=== PATIENT | male | born 1950 | race African-American/Black ===

== ENCOUNTER 2018-09-18 15:11 | Emergency (ER) | payer OTHER ==
[~2018-09-18] VITALS: Ht 175.3 cm; Wt 97.5 kg
[2018-09-18] MEDS ORDERED: AMARYL2 MG PO (15:41)
[2018-09-18] MEDS ORDERED: METFORMIN HCL500 MG PO (15:41)
[2018-09-18] MEDS ORDERED: VITAMIN D1000 UNI1 PO (15:42)
[2018-09-18] MEDS ORDERED: ZOCOR20 MG PO (15:42)
[2018-09-18] MEDS ORDERED: HYDROCHLOROTH12.5 M1 PO (15:42)
[2018-09-18] MEDS ORDERED: LISINOPRIL20 MG PO (15:42)
[2018-09-18 17:39] VITALS: BP 132/78
== END 2018-09-18 17:42 | disposition home or self-care (01) ==
LOC: ER 15:11
DX: E11.649 Type 2 diabetes mellitus with hypoglycemia without coma (principal); I10 Essential (primary) hypertension; E78.00 Pure hypercholesterolemia, unspecified

== ENCOUNTER 2019-11-07 09:35 | Inpatient (IN) | payer OTHER ==
[~2019-11-07] VITALS: Ht 175.3 cm; Wt 97.5 kg
[~2019-11-07 09:35] MED LIST: AMARYL2 MG PO; HYDROCHLOROTHIA50 MG PO; LISINOPRIL40 MG PO; METFORMIN HCL500 MG PO; SIMVASTATIN40 MG PO; VITAMIN D1000 UNI1 PO
[2019-11-07 09:37] VITALS: BP 160/103
[2019-11-07 10:26] LABS: HEMOGLOBIN 13.6 gm/dL (14.0-18.0); MCV 82.6 fL (80.0-100.0)
[2019-11-07 10:28] LABS: ABSOLUTE NEUTROPHILS 5.7 thou/uL (1.4-8.2); BASOPHILS 0.5 % (0.0-2.0); EOSINOPHILS 0.1 % (0.0-3.0); HEMATOCRIT 42.5 % (42.0-52.0); MCH 26.4 pg (26.0-34.0); MONOCYTES 6.6 % (1.0-8.0); POLYS 79.8 % (36.0-66.0); RBC 5.15 mil/uL (4.50-6.00); RDW 13.7 % (10.5-14.5); WBC 7.2 thou/uL (4.0-11.0)
[2019-11-07 10:37] LABS: ANION GAP 9 mmol/L (7-16); BUN 33 mg/dL (7-18); CALCIUM 9.4 mg/dL (8.5-10.1); CHLORIDE 93 mmol/L (98-107); CO2 31 mmol/L (21-32); CREATININE 1.9 mg/dL (0.7-1.3); GLUCOSE 191 mg/dL (74-106); SODIUM 133 mmol/L (136-145)
[2019-11-07 10:49] LABS: ALBUMIN 3.6 g/dL (3.4-5.0); MAGNESIUM 1.7 mg/dL (1.8-2.4); SGOT 15 U/L (15-37); SGPT 21 U/L (30-65); TOTAL BILIRUBIN 0.5 mg/dL (<0.1-1.0); TOTAL PROTEIN 7.7 g/dL (6.4-8.2); TROPONIN-I <0.06 ng/mL (<0.06)
[2019-11-07 11:34] LABS: PLATELET COUNT 187 thou/uL (150-400)
[2019-11-07 12:06] LABS: URINE BILIRUBIN NEGATIVE (Negative); URINE BLOOD NEGATIVE (Negative); URINE CLARITY CLEAR; URINE COLOR YELLOW; URINE GLUCOSE-RANDOM* NEGATIVE (Negative); URINE KETONES NEGATIVE (Negative); URINE LEUKOCYTES-REFLEX NEGATIVE (Negative); URINE NITRITE-REFLEX NEGATIVE (Negative); URINE PROTEIN (DIPSTICK) 2+ (Negative); URINE SPECIFIC GRAVITY 1.015 (1.005-1.035); URINE UROBILINOGEN 0.2 E.U./dl (0.2-1.0)
[2019-11-07 12:13] LABS: CASTS None Seen /LPF (None Seen); SQUAMOUS 4-10 Moderate /LPF (0-3)
[2019-11-07 12:14] LABS: BACTERIA-REFLEX 1-9 Few /HPF (None Seen); CRYSTALS None Seen /LPF (None Seen); URINE RBC 0-2 Rare /HPF (0-2); URINE WBC-REFLEX 0-5 Rare /HPF (0-5)
[2019-11-07 14:04] VITALS: BP 187/85
[2019-11-07 15:04] VITALS: BP 197/93
[2019-11-07 15:10] LABS: ALBUMIN 3.8 g/dL (3.4-5.0); TOTAL PROTEIN 7.2 g/dL (6.4-8.2)
[2019-11-07 15:36] LABS: TSH 1.262 uIU/mL (0.358-3.740)
[2019-11-07 15:49] VITALS: BP 195/97
[2019-11-07 16:58] VITALS: BP 178/73
[2019-11-07 19:26] VITALS: BP 148/66
--- NOTE | 2019-11-07 20:11 | NUR ---
Pt admitted from ER, transferred to bed safely. A+Ox4. On room air. Vital signs stable. On carb controlled diet; no nausea, no vomiting and no abdominal pain noted. On blood sugar monitoring- taken and recorded accordingly. No complaints of pain noted. With relative at bedside. With R AC- SL- started IV of NS at 125cc/hr, infusing well. Falls bundle in place. Admission education, history and assessment done; Forms signed. Pt with elevated BP of 195/97- PRN hydralazine and PO amlodipine given as prescribed; rechecked: 178/73. Rechecked again: 181/75- Dr Schafer informed, One time dose of hydralazine IV and PO Amlodipine given as prescribed- informed rn shift mgr nurse to re-check pt's vital signs. To continue monitorign patient.
--- NOTE | 2019-11-08 01:50 | NUR ---
PATIENT CARE ASSUMED AT 1915 WITH PT IN BED WATCHING TV.PT HAD ELEVATED BP DURING THE PREVIOUS SHIFT AND WAS MANAGED WITH HYDRALAZINE.PT VOMITED ONCE AND WAS GIVEN PROCHLORPERAZINE 5MG IVP.PT APPEARED TO BE IN NO DESTRESS.PT USES URINAL AND PT IS UP WITH SBA X1.PT HAS NS AT 125ML/HR.WILL CONTINUE TO MONITOR PER POC
[2019-11-08 03:10] LABS: GLYCOHEMOGLOBIN (HGB A1C) 6.8 % (4.8-5.6)
[2019-11-08 05:02] VITALS: BP 179/74
[2019-11-08 06:13] LABS: HEMOGLOBIN 13.1 gm/dL (14.0-18.0); MCH 26.4 pg (26.0-34.0); MCHC 31.9 g/dL (28.0-37.0); MCV 82.9 fL (80.0-100.0); RBC 4.94 mil/uL (4.50-6.00); RDW 13.8 % (10.5-14.5); WBC 7.5 thou/uL (4.0-11.0)
[2019-11-08 06:54] LABS: CREATININE 1.8 mg/dL (0.7-1.3); MAGNESIUM 1.7 mg/dL (1.8-2.4); POTASSIUM 3.8 mmol/L (3.5-5.1)
[2019-11-08 07:56] VITALS: BP 152/63
[2019-11-08 12:25] LABS: LIPASE 704 U/L (73-393); TRIGLYCERIDE 111 mg/dL (<150)
--- NOTE | 2019-11-08 12:34 | EKG ---
[facility] [place] [address] [address] [address] ELECTROCARDIOGRAM REPORT Name: KIERA FAIRBANKS Room #: 458-P ADM IN M.R.#: [id number] Admission: 11/07/19 Attend Phys: Edinson Schafer MD Discharge: Date of : 46 Report #: [id number] THIS REPORT FOR: cc: Martha Wallace MD, Karla L. MD Lundgren,Andrew Uribe MD [facility] THIS REPORT FOR: //name// [facility] ED Test Date: 2019-11-07 Test Time: 09:39:40 Pat Name: KIERA FAIRBANKS Department: Room: 458 P Gender: M Digital Performance Analyst: SUSY : 1950 Requested By: Reene Melendez Order Number: [id number] MD: Andrew Sullivan Measurements Intervals [place] Rate: 61 P: 74 [place]: 146 QRS: 26 QRSD: 109 T: -24 QT: 427 QTc: 430 Interpretive Statements Sinus rhythm Ventricular premature complex Nonspecific ST segment abnormality No previous ECG available for comparison Electronically Signed On 11-07-2019 17:29:38 SPRAY GUN REPAIRER HELPER by Andrew Sullivan [email or web address] <ELECTRONICALLY SIGNED> By: Andrew Sullivan MD, FACC 11/07/19 1729 0939 0939 Andrew Sullivan MD, [facility] /EPI
--- NOTE | 2019-11-08 13:02 | NUR ---
PT ADMITTED RELATED TO [facility]. CM REVIEWED CAHRT AND SPOKE WITH CARE TEAM. CM MET WITH PT AT BEDSIDE THIS DAY. PT IS A&O X4. CM ROLE INTRODUCED. PT INDICATED HE LIVES IN A HOUSE WITH HIS SIG OTHER WHO IS CURRENTLY HOSPITALIZED HERE. PT HAS 2 STEPS TO ENTER AND 12 HE USES INSIDE. 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 PT INDICATED HE PLANS TO RETURN HOME ONCE MEDICALLY STABLE. CM TO FOLLOW INIDCATED WITH DC PLANNING.
[2019-11-08 14:01] VITALS: BP 176/75
--- NOTE | 2019-11-08 18:55 | NUR ---
Assumed patient care at 0715. Blood pressure was 176/75; he was given Hydralazine as ordered. Vital signs have been stable throughout the rest of the shift. Patient alert and oriented x's 4, on room air; he denies pain. Patient given nausea medication at 1210 with complete relief. Appetite is poor. Patient to be NPO after Nidnight. He is to have EGD in am. Education per this procedure given to patient and spouse; they expressed an understanding prior to signing paperwork. POC followed. On-coming nurse notified.
[2019-11-08 20:29] VITALS: BP 156/69
--- NOTE | 2019-11-09 03:48 | NUR ---
Pt. rested quietly during the night when checked on during frequent rounds. He offers no c/o pain or nausea. No emesis. Bed alarm is on.
[2019-11-09 06:07] LABS: HEMATOCRIT 39.1 % (42.0-52.0); HEMOGLOBIN 12.4 gm/dL (14.0-18.0); MCH 26.3 pg (26.0-34.0); MCHC 31.8 g/dL (28.0-37.0); MCV 82.5 fL (80.0-100.0); RBC 4.73 mil/uL (4.50-6.00); RDW 13.8 % (10.5-14.5); WBC 6.5 thou/uL (4.0-11.0)
[2019-11-09 06:38] LABS: CALCIUM 8.8 mg/dL (8.5-10.1); CREATININE 1.5 mg/dL (0.7-1.3); MAGNESIUM 1.9 mg/dL (1.8-2.4); POTASSIUM 3.6 mmol/L (3.5-5.1)
[2019-11-09 07:25] VITALS: BP 204/95
[2019-11-09 11:56] VITALS: BP 173/82
--- NOTE | 2019-11-09 17:59 | NUR ---
Assumed patient care at 0715 with Mitten Stitcher and Analog Design Engineer from [facility]. Patient was NPO since midnight for EGD. Mitten Stitcher and Instructor with patient until 0945, when this nurse was asked to report to patient's room for "hand-off", as patient was leaving for procedure. Pt's blood pressure was 205/90 at 0740. He was given Hydralazine 10mg per IV push. Staff taking patient to procedure stated "we will give him blood pressure medication if he needs it before the EGD." Patient returned back to unit just prior to noon. Blood pressure was taken with high results per Mitten Stitcher and Instructor. This was not reported to this nurse. Hydralazine 10mg IV push given at 1640. Blood pressure continues to run high. He is asymptomatic. Patient givenLisinopril 40mg at 1715. Blood pressure re-checked at 1820 with the following readin/75, P 84. Dr Schafer paged at this time.
[2019-11-09 18:26] VITALS: BP 179/75
[2019-11-09 21:47] VITALS: BP 187/74
[2019-11-09 23:00] VITALS: BP 162/90
--- NOTE | 2019-11-10 03:01 | NUR ---
Pt. rested quietly during the night when checked on during frequent rounds. He offers no c/o pain or nausea. Elevated bp this shift and prn hydralazine iv given (see emar) which was helpful, see vss. Bed alarm is on.
[2019-11-10 03:37] LABS: HEMATOCRIT 38.6 % (42.0-52.0); HEMOGLOBIN 12.3 gm/dL (14.0-18.0); MCH 26.4 pg (26.0-34.0); MCHC 31.8 g/dL (28.0-37.0); MCV 83.1 fL (80.0-100.0); RBC 4.65 mil/uL (4.50-6.00); RDW 13.9 % (10.5-14.5); WBC 7.7 thou/uL (4.0-11.0)
[2019-11-10 03:56] LABS: CALCIUM 8.8 mg/dL (8.5-10.1); CREATININE 1.5 mg/dL (0.7-1.3); MAGNESIUM 1.7 mg/dL (1.8-2.4); POTASSIUM 3.5 mmol/L (3.5-5.1)
[2019-11-10 07:00] VITALS: BP 187/70
--- NOTE | 2019-11-10 11:08 | PATH ---
[facility] [address] [place] [address] PATHOLOGY RPT PROCEDURE Name: KIERA FAIRBANKS Room #: 458-P ADM IN M.R.#: [id number] Admission: 11/07/19 Date of : 46 Discharge: Report #: [id number] Path Case #: [id number] Note [facility] Accession Number: [id number] TESTS RESULT FLAG UNITS REF RANGE LAB Clinician Provided Cytology Information No. of containers..01 Other (Miscellaneous) Source: ESOPHAGEAL BRUSHING DIAGNOSIS: 02 ESOPHAGEAL BRUSHING NEGATIVE FOR MALIGNANT CELLS. REACTIVE SQUAMOUS CELLS ARE PRESENT. CELLULAR DEGENERATION IS PRESENT. NO FUNGAL ORGANISMS ARE PRESENT. Signed out by: 02 Rodolfo Jackson MD, Pathologist NPI- [id number] Performed by: 01 Shira Kerr, Press Hand ([facility]) Gross description: 1 TP /CAMDNE 11/09/2019 1805 Local FLAG LEGEND: L-Low Normal,H-High Normal,LL-Alert Low,HH-Alert High <-Panic Low,>-Panic High,A-Abnormal,AA-Critical Abnormal Performed at: [address] [place] [address] David Patton MD, [address] [address] [address] Yung MD, Specimen Comment: A courtesy copy of this report has been sent to [phone] Specimen Comment: Report sent to Performed at: [address], [place], [place] [address] MD David Patton MD Phone: [phone]
--- NOTE | 2019-11-10 13:08 | PATH ---
[facility] [address] [address] PATHOLOGY RPT PROCEDURE Name: JAIR FAIRBANKS Room #: 458-P ADM IN M.R.#: [id number] Admission: 11/07/19 Date of : 46 Discharge: Report #: [id number] Path Case #: [id number] [facility] Accession Number: [id number] . 01 Material submitted: . PART A: duodenum - BIOPSY OF DUODENITIS PART B: stomach - BIOPSY OF GASTRITIS . 01 Clinical history: . Pre-op diagnosis: Nausea, vomiting Post-op diagnosis: Duodenitis, gastritis, possible fungal esophagitis . 02 Diagnosis: A. Duodenum, "biopsy of duodenitis": - Mild chronic nonspecific duodenitis with mild blunting of villous pattern (see comment). - There is no evidence of acute cryptitis, granulomas, adenomatous change or malignancy. . B. Gastric, "biopsy of gastritis": - Mild chronic reactive gastropathy. - There is no evidence of acute cryptitis, granulomas, adenomatous change or malignancy. - The immunoperoxidase stains for Helicobacter pylori is negative. . (SHA:mmlaya; 11/10/2019) [facility] 11/10/2019 1006 Local . 02 Comment: A. The findings are nonspecific, however, slight blunting of villous pattern is present and thus laboratory studies should be done to rule out early sprue. . ([facility]:mmlaya; 11/10/2019) . 02 Electronically signed: . Rodolfo Jackson MD, Pathologist NPI- [id number] . 01 Gross description: . A. The specimen is received in formalin, labeled "Jair Fairbanks, biopsy of duodenitis". Received is a segment of pale kincaid soft tissue measuring 0.5 cm in maximum dimensions. The specimen is submitted entirely in cassette A1. . B. The specimen is received in formalin, labeled "Jair Fairbanks, biopsy of gastritis". Received are three segments of [place] [address] PATHOLOGY RPT PROCEDURE Name: JAIR FAIRBANKS Room #: 458-P [facility] IN M.R.#: [id number] Admission: 11/07/19 Date of : 46 Discharge: Report #: [id number] Path Case #: [id number] measuring 0.4 cm each in maximum dimensions. The specimen is submitted entirely in cassette B1. (CAA; 11/09/2019) QAC/QAC 11/09/2019 [facility]9 Local . 02 Pathologist provided ICD-10: K29.80, K31.9 . 02 CPT . 231991, 758272, Y07184 Specimen Comment: A courtesy copy of this report has been sent to [phone] Specimen Comment: [phone], Specimen Comment: Report sent to , and Performed at: [address], [place] [id number] MD David Patton MD Phone: [phone] Performed at: [address] [id number] Yung MD Phone: [phone]
[2019-11-10 14:15] VITALS: BP 181/69
[2019-11-10 15:51] VITALS: BP 163/73
[2019-11-10] MEDS ORDERED: NORVASC10 MG PO (15:59)
[2019-11-10] MEDS ORDERED: PEPCID40 MG PO (16:11)
[2019-11-10 16:25] VITALS: BP 163/73
--- NOTE | 2019-11-10 16:32 | NUR ---
CARE TEAM INDICATED THAT LONG PT'S BP BECOMES BETTER CONTROLLED HE WILL LIKELY BE MEDICALLY STABLE TO DC HOME THIS DAY. PT IS ANTICPATED THAT PT WILL HAVE NO NEEDS UPON DC. CM AVAIABLE SHOULD ANY DC NEEDS ARISE.
--- NOTE | 2019-11-10 20:55 | NUR ---
Received awake on bed. On nothing per ore- pt informed and aware, for gastric emptying studies. On room air. Vital signs stable. On blood sugar monitoring-taken and recorded accordingly. A+Ox4. With elevated Bp noted- PRN hydralazine given as prescribed. Continent, able to use urinal or go to the bathroom with standby assist. With SL at R hand- intact and flushing well. Assisted in ADLs, falls bundle in place. Pt brought down to [place] for gastric emptying studies via wheelchair, pt to stay there for 4 hrs. Back to room safely; lunch offered to patient. Vital signs rechecked, still with elevated blood pressure- resumed all missed medications from this morning, then to recheck BP again. Able to sit out on chair. Visited by relative today. Pt seen by christopher ARNOLD to discharge from their standpoint, Dr Schafer informed; as per Dr Schafer, if BP is controlled or lowered this PM may discharge- relayed to physician Bp readings post PO BP medications. Discharge orders made by physician. Discharge instructions, follow up schedule, and prescriptions given and instructed to patient; no HH needs. IV discontinued. Pt fetched by her sister. Pt transported via wheelchair with his personal belongings.
--- NOTE | 2019-11-12 08:51 | P ---
[facility] [place] [address] PROCEDURE REPORT Name: KIERA FAIRBANKS Room #: 458-P [facility] IN M.R.#: [id number] Admission: 11/07/19 Attend Phys: Edinson Schafer MD Discharge: 11/10/19 Date of : 46 Report #: [id number] THIS REPORT FOR: cc: Martha Wallace MD,Danielle Ogden MD DO ~ CC: Edinson Wallace PROCEDURE PERFORMED: An esophagogastroduodenoscopy with biopsies and brushings. He is a patient of Dr. Schafer. INDICATION FOR PROCEDURE: This patient has presented with nausea and vomiting of undetermined etiology, some epigastric discomfort. He has a history of diabetes mellitus. It is thought that he may possibly have gastroparesis. EGD is being performed to evaluate for mucosal disease. Informed consent for this procedure was obtained prior to the administration of any medication. The risks of the procedure, which include bleeding, perforation, infection, complications of sedation and the possibility I could miss something have been explained to the patient and he has indicated his consent by signing. Propofol was slowly titrated before and during this procedure for patient comfort by the anesthesia service. DESCRIPTION OF PROCEDURE: With the patient in the left lateral decubitus position, the Olympus upper videoscope was introduced through the upper esophageal sphincter and advanced under direct visualization to the third portion of the duodenum. Findings are noted on withdrawal of the scope. The visualized portion of the 2nd and 3rd parts of the duodenum appeared normal. The duodenal sweep is mildly erythematous. The duodenal bulb contains patchy erythema. Biopsies were obtained x 2 from the duodenal bulb for histopathology. Pylorus mildly erythematous and edematous. Antrum, there is moderate erosive gastritis in the antrum of the stomach and biopsies were obtained x 2 from this area for histopathology. Body, cardia and fundus, erythema and edema are noted. Biopsies were obtained from the proximal body of the stomach for histopathology x 2. Good hemostasis was noted after all biopsies. Retroflex view reveals the presence of a hiatal hernia. The scope was withdrawn into the esophagus. The Z-line is appropriately located at the top of the gastric folds and appears normal. The patient did have some exudative material that was seen on introduction of the scope. It appears to be gone for the most part and I think it was just probably dried secretions, but there was one remaining dried secretion appearing area that I brushed for DIO prep. The more proximal esophageal mucosa was absolutely normal. The scope was withdrawn. The patient [address] [address] PROCEDURE REPORT Name: KIERA FAIRBANKS Room #: 458-P DIS IN M.R.#: [id number] Admission: 11/07/19 Attend Phys: Edinson Schafer MD Discharge: 11/10/19 Date of : 46 Report #: [id number] went to the recovery area in stable condition. He tolerated the procedure well. IMPRESSION: 1. Mild exudative esophagitis. 2. Hiatal hernia. 3. Diffuse gastritis with distal erosions. Biopsies obtained as above. 4. Edematous pylorus. 5. Edema and erythema of the duodenal bulb, biopsied x2. 6. Normal second and visualized third portion of the duodenum. RECOMMENDATIONS: To await the path report. There was good hemostasis after all biopsies and brushings. We will keep him on H2 receptor antagonist. Right now, he is on Pepcid 20 mg IV b.i.d. and that we can send him home on 20 mg p.o. b.i.d. We will start him on some clear liquids, await the biopsies and brushings and I would recommend that he have a gastric emptying study as I think he most likely has some diabetic gastroparesis. Thank you very much once again for allowing me to participate in his care. <ELECTRONICALLY SIGNED> By: Danielle Zapata DO 11/12/19 0851 1104 1123 Danielle Zapata DO /nt
== END 2019-11-10 17:21 | disposition home or self-care (01) | DRG 438 ==
LOC: ER 09:35 → 4W 13:32 → EROBS 13:32 → 4W 15:05 → ENTRNSPT 11-10 16:56 → 4W 11-10 17:21
PROVIDERS: Emergency Medicine Emergency Medical Services; Internal Medicine Gastroenterology; ADMIT Internal Medicine
PROC: 0DD58ZX Extraction of Esophagus, Via Natural or Artificial Opening Endoscopic, Diagnostic (ICD-10-PCS; principal; 2019-11-09)
PROC: 0DB98ZX Excision of Duodenum, Via Natural or Artificial Opening Endoscopic, Diagnostic (ICD-10-PCS; principal; 2019-11-09)
PROC: 0DB68ZX Excision of Stomach, Via Natural or Artificial Opening Endoscopic, Diagnostic (ICD-10-PCS; principal; 2019-11-09)
DX: K85.20 Alcohol induced acute pancreatitis without necrosis or infection (principal); N17.0 Acute kidney failure with tubular necrosis; E87.1 Hypo-osmolality and hyponatremia; A08.4 Viral intestinal infection, unspecified; K29.00 Acute gastritis without bleeding; E86.0 Dehydration; I10 Essential (primary) hypertension; E78.00 Pure hypercholesterolemia, unspecified; K20.9 Esophagitis, unspecified; K44.9 Diaphragmatic hernia without obstruction or gangrene; R60.9 Edema, unspecified; K31.89 Other diseases of stomach and duodenum; E78.5 Hyperlipidemia, unspecified; G47.00 Insomnia, unspecified; T50.2X5A Adverse effect of carbonic-anhydrase inhibitors, benzothiadiazides and other diuretics, initial encounter; K29.80 Duodenitis without bleeding; F10.20 Alcohol dependence, uncomplicated; E11.43 Type 2 diabetes mellitus with diabetic autonomic (poly)neuropathy; K31.84 Gastroparesis; K76.0 Fatty (change of) liver, not elsewhere classified; Y92.89 Other specified places as the place of occurrence of the external cause; Z79.84 Long term (current) use of oral hypoglycemic drugs; Z79.899 Other long term (current) drug therapy
CPT/HCPCS: 10040; 62110; 62900; 70005

== ENCOUNTER 2019-11-20 18:16 | Inpatient (IN) | payer OTHER ==
[~2019-11-20] VITALS: Ht 175.3 cm; Wt 92.6 kg
[2019-11-20 18:16] VITALS: BP 186/99
[~2019-11-20 18:16] MED LIST changes: +NORVASC10 MG PO; +PEPCID40 MG PO
[2019-11-20] MEDS ORDERED: REGLAN 5 MG TAB5 MG PO (18:19)
[2019-11-20] MEDS ORDERED: ROSUVASTATIN CA10 MG PO (18:20)
[2019-11-20 18:39] LABS: ABSOLUTE NEUTROPHILS 6.4 thou/uL (1.4-8.2); BASOPHILS 0.4 % (0.0-2.0); EOSINOPHILS 0.1 % (0.0-3.0); HEMATOCRIT 46.6 % (42.0-52.0); HEMOGLOBIN 14.7 gm/dL (14.0-18.0); LYMPHOCYTES 8.5 % (24.0-44.0); MCH 26.4 pg (26.0-34.0); MCHC 31.5 g/dL (28.0-37.0); MCV 83.6 fL (80.0-100.0); MONOCYTES 3.1 % (1.0-8.0); PLATELET COUNT 234 thou/uL (150-400); POLYS 87.9 % (36.0-66.0); RBC 5.57 mil/uL (4.50-6.00); RDW 14.1 % (10.5-14.5); WBC 7.3 thou/uL (4.0-11.0)
[2019-11-20 18:49] LABS: ALBUMIN 3.3 g/dL (3.4-5.0); CALCIUM 9.9 mg/dL (8.5-10.1); CREATININE 1.8 mg/dL (0.7-1.3); TOTAL BILIRUBIN 0.5 mg/dL (<0.1-1.0); TOTAL PROTEIN 7.4 g/dL (6.4-8.2)
[2019-11-20 18:53] LABS: POTASSIUM 6.5 mmol/L (3.5-5.1)
--- NOTE | 2019-11-20 20:27 | NUR ---
PATIENT BEING TRANSPORTED TO MRI. DIVISION CHAIR TO NOTIFY ER WHEN PATIENT IS READY FOR TRANSPORT
[2019-11-20 20:30] VITALS: BP 185/90
[2019-11-20 21:51] VITALS: BP 205/97
[2019-11-20 22:45] LABS: CHOLESTEROL 124 mg/dL (<200); HDL CHOLESTEROL 56 mg/dL (>40); LDL CHOLESTEROL 50 mg/dL (<100); TC:HDL 2.2 Ratio (Not establshd); TRIGLYCERIDE 92 mg/dL (<150); VLDL 18 mg/dL (<40)
[2019-11-20 22:48] LABS: SERUM ASSESSMENT Clear
--- NOTE | 2019-11-20 23:56 | NUR ---
PT ADMITTED FROM ED WITH RIGHT SIDED WEAKNESS.PT ARRIVED TO UNIT VIA CART.A/OX4.VSS.BLOOD PRESSURE ELEVATED.ON RA W/O RESP DISTRESS.ON MONITOR SR/SB.ORIENTED TO RM AND UNIT ACTIVITIES.POC REVIEWED AND IN AGREEMENT.NIH COMPLETED PER ORDERS SCORING 3.MRI RESULTS CALLED TO THE NEUROLOGIST BY THE ASP WEB DEVELOPER,YAZMIN CARRANZA.IVF PER ORDERS.ADMISSION ASSESSMENT COMPLETED.FAMILY AT THE BEDSIDE.MEDS RECONCILLED.PT DENIES PAIN OR ANY DISTRESS AT THIS TIME.WILL CONT TO MONITOR
[2019-11-21] VITALS (8 sets, daily range): BP systolic 94–187; BP diastolic 55–90
--- NOTE | 2019-11-21 00:25 | NUR ---
swallowing test done at bedside,pt does not seem to have trouble swallowing or any s/sx of aspiration.denies concerns.carb controlled diet ordered per THERMAL ENGINEER orders.
[2019-11-21 04:10] LABS: CALCIUM 9.3 mg/dL (8.5-10.1); CREATININE 1.5 mg/dL (0.7-1.3)
[2019-11-21 04:16] LABS: POTASSIUM 4.4 mmol/L (3.5-5.1)
[2019-11-21 04:36] LABS: URINE BILIRUBIN NEGATIVE (Negative); URINE BLOOD NEGATIVE (Negative); URINE CLARITY CLEAR; URINE COLOR YELLOW; URINE GLUCOSE-RANDOM* TRACE (Negative); URINE KETONES NEGATIVE (Negative); URINE LEUKOCYTES-REFLEX NEGATIVE (Negative); URINE NITRITE-REFLEX NEGATIVE (Negative); URINE PROTEIN (DIPSTICK) 2+ (Negative); URINE SPECIFIC GRAVITY 1.025 (1.005-1.035); URINE UROBILINOGEN 0.2 E.U./dl (0.2-1.0)
[2019-11-21 05:12] LABS: BACTERIA-REFLEX 1-9 Few /HPF (None Seen); SQUAMOUS 0-3 Few /LPF (0-3); URINE RBC 0-2 Rare /HPF (0-2); URINE WBC-REFLEX 0-5 Rare /HPF (0-5)
[2019-11-21 05:13] LABS: CRYSTALS None Seen /LPF (None Seen); HYALINE CASTS 0-3 Few /LPF (None Seen)
--- NOTE | 2019-11-21 05:14 | NUR ---
ASSESSMENT DOCUEMENTED.PT BEEN RESTING IN NO ACUTE DISTRESS.TREATED FOR POTASSIUM OF 6.5 WITH IMPROVEMENT.PT HAVING DIFFICULTIES VOIDING.UNABLE TO VOID W/SEVERAL ATTEMPTS.BLADDER SCAN PER PROTOCOL,OBTAINED 776ML OF RESIDUE ON BLADDER.INTERMODAL CUSTOMER SERVICE NOTIFIED ORDERED TO STRAIGHT CATHX1 AND AGAIN IN 4HOURS.URINE SPECIMEN SENT TO LABS.USED COUDAL CATHETER TO SC DUE TO RESISTANCE WITH REGULAR SC CATHETER.PT TOLERATED THE PROCEDURE,OBTAINED 720CC OF YELLOW URINE.PT DENIES ANY NEEDS AT THIS TIME.WILL CONT TO MONITOR PER POC.
--- NOTE | 2019-11-21 08:09 | EKG ---
[facility] [address] [address] [place] [address] ELECTROCARDIOGRAM REPORT Name: KIERA FAIRBANKS Garret Room #: 207-P ADM IN M.R.#: [id number] Admission: 11/20/19 Attend Phys: Bert Velasquez Discharge: Date of : 46 Report #: [id number] THIS REPORT FOR: cc: Martha Wallace MD, Karla L. MD Couchonnal, Luis F. MD ~ THIS REPORT FOR: //name// [facility] ED Test Date: 2019-11-20 Test Time: 18:42:40 Pat Name: KIERA FAIRBANKS Department: Room: 207 Gender: M Systems Programmer Analyst: JOSE : 1950 Requested By: Marnie Waters Order Number: [id number] MD: Brendan Hooks Measurements Intervals [place] Rate: 73 P: 69 [place]: 146 QRS: 22 QRSD: 94 T: 29 QT: 403 QTc: 444 Interpretive Statements Sinus rhythm Minimal ST elevation, anterior leads Compared to ECG 11/07/2019 09:39:40 Ventricular premature complex(es) no longer present ST (T wave) deviation still present Electronically Signed On 11-21-2019 8:08:44 PRODUCTION OFFICER by Brendan Hooks [email or web address] <ELECTRONICALLY SIGNED> By: Brendan Hooks MD 11/21/19807 41 41 Brendan Hooks MD /EPI
--- NOTE | 2019-11-21 10:43 | NUR ---
ASSUMED CARE AT 0700, SHIFT ASSESSMENT DONE, NPO PER THE DOCTORS. DR MCDERMOTT HAS BEEN INFORMED, SCHEDULED FOR SURGERY THIS AFTERNOON. WILL KEEP NPO, PRN BLOOD PRESSURE MED FOR SBP > 180. NSR ON TELE, ROOM AIR, WILL CONTINUE TO ASSESS AND ASSIST WITH ADLs NEEDED.
--- NOTE | 2019-11-21 14:34 | NUR ---
ORDERS RECEIVED FOR PT EVAL AND TREAT. Pt WITH BILAT SDHs. Pt OUT OF ROOM THIS AFTERNOON FOR BILAT EXACUATIONS. WILL NEED UPDATED PT ORDERS S/P NEUROSURGICAL INTERVENTION WHEN Pt IS APPROPRIATE FOR PT SERVICES.
--- NOTE | 2019-11-21 14:42 | NUR ---
Nutrition: pt with nsg risk of decreased appetite with wt loss. Physicain notes, however, report pt denies appetite or weight change. Wt is down from prevoius admit wt's, but those wt's appear to be stated and/or "carry over" wt's. Pt out to surgery this afternoon for bilat evacuation of subdural hematomas; pt has been NPO. Albumin 3.3, B-230, RFT's 36/1.5. K improved from 6.5 to 4.4. Pt passed swallow eval. Nutrition risk is unclear at this time. RD to follow up by 11/23 to better assess intake and wt hx.
[2019-11-21 19:10] LABS: HEMATOCRIT 42.5 % (42.0-52.0); HEMOGLOBIN 12.9 gm/dL (14.0-18.0); MCH 25.9 pg (26.0-34.0); MCHC 30.3 g/dL (28.0-37.0); MCV 85.6 fL (80.0-100.0); RBC 4.96 mil/uL (4.50-6.00); RDW 14.5 % (10.5-14.5); WBC 18.5 thou/uL (4.0-11.0)
[2019-11-21 19:20] LABS: CALCIUM 9.1 mg/dL (8.5-10.1); CREATININE 2.1 mg/dL (0.7-1.3); POTASSIUM 4.1 mmol/L (3.5-5.1); TOTAL BILIRUBIN 0.4 mg/dL (<0.1-1.0); TOTAL PROTEIN 6.4 g/dL (6.4-8.2)
[2019-11-21 19:23] LABS: INR 1.1; PROTIME 11.4 Seconds (9.3-11.4)
[2019-11-21 19:52] LABS: BE(vivo) -13.8 mmol/L (-2 to +3); HCO3 12.2 mmol/L (22.0-26.0); PCO2 29.1 mmHg (35.0-45.0); PO2 361.9 mmHg (80.0-100.0); sO2 99.7 % (92.0-98.0)
--- NOTE | 2019-11-21 21:07 | NUR ---
PATIENT ADMITTED FROM RECOVERY AT 1900 POST CRANIOTOMY, PACU STAFF AND DR. MCDERMOTT PRESENT AT THE BEDSIDE. PATIENT BLOOD PRESSURE GREATER THAN 180 SYSTOLIC. IV CARDENE AND NITRO RESTARTED. SPOKE WITH DR. GOODEN, DR. SANTANA CONSULTED. LABWORK COMPLETED, PATIENT IN METABOLIC ACIDOSIS, DR. MCCARTHY CONSULTED. NEW ORDERS NOTED. URINE OUTPUT MONITORED. NO SIGN OF ACUTE DISTRESS NOTED AT THIS TIME. WILL CONTINUE TO MONITOR.
--- NOTE | 2019-11-21 22:35 | NUR ---
PATIENT MORE AWAKE, ABLE TO LIFT LEGS BILATERALLY AND SQUEEZE LEFT HAND, NO MOVEMENT IN RIGHT ARM. WHEN ASKED PATIENT IF HE'S OK, PATIENT ABLE TO NOD HEAD. SPOKE WITH DR. MCDERMOTT'S NURSE PRACTITIONER ABOUT CHANGE OF STATUS, NO NEW ORDERS NOTED.
[2019-11-21 23:54] LABS: CALCIUM 7.9 mg/dL (8.5-10.1); CREATININE 1.8 mg/dL (0.7-1.3); POTASSIUM 4.4 mmol/L (3.5-5.1)
[2019-11-22] VITALS (11 sets, daily range): BP systolic 107–149; BP diastolic 68–79
[2019-11-22 00:08] LABS: GLYCOHEMOGLOBIN (HGB A1C) 7.2 % (4.8-5.6)
[2019-11-22 05:22] LABS: CALCIUM 8.2 mg/dL (8.5-10.1); CREATININE 1.5 mg/dL (0.7-1.3); POTASSIUM 4.1 mmol/L (3.5-5.1)
--- NOTE | 2019-11-22 07:16 | NUR ---
Patient transferred to ICU. Due to change in status, patient is on hold for O.T. evaluation and treatment as ordered. New orders are needed to resume O.T. services when/if appropriate.
--- NOTE | 2019-11-22 07:43 | NUR ---
PATIENT MORE AWAKE THIS MORNING, ALERT AND TRYING TO GET OUT OF BED, ABLE TO MOVE ALL EXTREMITIES. CURRENTLY COMPLAINING OF HEADACHE, X3 J/P DRAINS TO HEAD POST CRANIOTOMY. BLOOD PRESSURE CONTROL MONITORED, CARDENE CURRENTLY 10MG/HR, BLOOD PRESSURE REMAINED BELOW 160 SYSTOLICLY. HARDING PATENT AND DRAINING, BLOODY DRAINING DURING BEGINNING OF SHIFT, NOW CLEAR YELLOW. PATIENT EDUCATED ON THE IMPORTANCE OF FALL PREVENTION. FARMER CASH GRAIN ANNA NOTIFIED OF CHANGES, NEW ORDERS NOTED. NO SIGN OF ACUTE DISTRESS AT THIS TIME, WILL CONTINUE TO MONITOR.
--- NOTE | 2019-11-22 11:36 | NUR ---
chart review. cm met with pt son anuradha vigil [phone] and pt sister linwood [phone] " it is ok for linwood to received health care information"/per son anuradha. intro to cm, transition of care, home health, rehab and senior blue book provided for outside hospital resources. per family " lives at home in his house with sig other dallin. 2 steps to enter the home. then everything is on main level. he is dallin primary critical care cns, she has MS. he independent with adl's, no dme, manage own medication, cooks, cleans and still drives vehicle. will cont following as needed for dc needs.
[2019-11-22 12:34] LABS: BE(vivo) -5.6 mmol/L (-2 to +3); PCO2 34.4 mmHg (35.0-45.0); PO2 135.5 mmHg (80.0-100.0); pH 7.361 (7.360-7.450); sO2 98.6 % (92.0-98.0)
--- NOTE | 2019-11-22 14:15 | 2DMMODE ---
[facility] [address] [place] [address] 2 D/M-MODE ECHOCARDIOGRAM Name: KIERA FAIRBANKS Room #: 245-P ADM IN M.R.#: [id number] Admission: 11/20/19 Attend Phys: Bert Vleasquez Discharge: Date of : 46 Report #: [id number] THIS REPORT FOR: cc: Martha Wallace MD, Karla L. MD Park, Jin S. MD ~ APPROVED REPORT Study performed: 11/22/2019 13:28:24 EXAM: Comprehensive 2D, Doppler, and color-flow Echocardiogram Patient Location: ICU Room #: [facility] Status: routine BSA: 2.11 HR: 84 bpm BP: 121/74 mmHg Rhythm: NSR Other Information Study Quality: Technically DifficultTechnically Limited Indications CVA/TIA Diabetes Hypertension/HDD Echo Enhancing Agent Indication: Rule out Shunt Agent(s) / Amount(s) Used: Agitated Saline 7 cc 2D Dimensions IVSd: 10.41 (7-11mm) LVOT Diam: 19.57 (18-24mm) LVDd: 52.54 mm PWd: 9.76 (7-11mm) LVDs: 33.93 (25-40mm) Aortic Root: 32.12 mm IVC: 14.00 mm Aortic Valve AoV Peak Anant.: 1.28 m/s AO Peak Gr.: 6.58 mmHg LVOT Max P.91 mmHg LVOT Max V: 0.85 m/s ARIES Vmax: 2.00 cm2 [facility] [address] [place] [address] 2 D/M-MODE ECHOCARDIOGRAM Name: KIERA FAIRBANKS Room #: 245-P [facility] IN ..#: [id number] Admission: 11/20/19 Attend Phys: Bert Perry Discharge: Date of : 46 Report #: [id number] Mitral Valve E/A Ratio: 0.9 MV Decel. Time: 254.09 ms MV E Max Anant.: 0.74 m/s MV A Anant.: 0.79 m/s MV PHT: 73.69 ms Pulmonary Valve PV Peak Anant.: 0.92 m/s PV Peak Gr.: 3.38 mmHg Left Ventricle The left ventricle is normal size. There is normal LV segmental wall motion. There is normal left ventricular wall thickness. The left ventricular systolic function is normal. The left ventricular ejection fraction is within the normal range. LVEF is 55-60%. This study is not technically sufficient to allow evaluation of the LV diastolic function. Right Ventricle The right ventricle is normal size. The right ventricular systolic function is normal. Atria The left atrium size is normal. Interatrial septum is intact without evidence of ASD or PFO. The right atrium size is normal. Aortic Valve The aortic valve is normal in structure. No aortic regurgitation is present. There is no aortic valvular stenosis. Mitral Valve The mitral valve is normal in structure. There is no mitral valve regurgitation noted. No evidence of mitral valve stenosis. Tricuspid Valve The tricuspid valve is normal in structure. There is no tricuspid valve regurgitation noted. Pulmonic Valve The pulmonary valve is normal in structure. There is no pulmonic valvular regurgitation. Great Vessels The aortic root is normal in size. IVC is normal in size and collapses >50% with inspiration. [facility] [address] [place] [address] 2 D/M-MODE ECHOCARDIOGRAM Name: KIERA FAIRBANKS Room #: 245-P [facility] IN ..#: [id number] Admission: 11/20/19 Attend Phys: Bert Perry Discharge: Date of : 46 Report #: [id number] Pericardium There is no pericardial effusion. <Conclusion> The left ventricle is normal size. There is normal left ventricular wall thickness. The left ventricular systolic function is normal. The right ventricle is normal size. The left atrium size is normal. Interatrial septum is intact without evidence of ASD or PFO. The aortic valve is normal in structure. There is no mitral valve regurgitation noted. There is no tricuspid valve regurgitation noted. <ELECTRONICALLY SIGNED> By: Liam Juarez MD 11/22/19 1414 1414 1414 Liam Juarez MD /INF
--- NOTE | 2019-11-22 15:36 | NUR ---
PT MOVING ALL EXTREMITIES TODAY. VERY RESTLESS, PRECEDEX ORDERED BY PROVIDER. GODWIN DRAINS PUTTING OUT SIGNIFICANT AMOUNT OF DRAINAGE, OVER 300ML FOR SHIFT. PT ABLE TO ANSWER QUESTIONS APPROPRIATELY, SUCH NAME AND WHAT CITY WE ARE CURRENTLY IN. ARTERIAL LINE REMOVED WITH NO COMPLICATIONS. HARDING PUTTING OUT RED/YELLOW URINE WITH CLOTS PRESENT. CARDENE GTT TURNED OFF SINCE BEGINING OF SHIFT. HEAD CT ORDERED FOR TOMORROW AM. POSSIBLE EEG WELL.
[2019-11-22 17:49] LABS: URINE BILIRUBIN NEGATIVE (Negative); URINE BLOOD 3+ (Negative); URINE CLARITY CLEAR; URINE COLOR YELLOW; URINE GLUCOSE-RANDOM* NEGATIVE (Negative); URINE KETONES NEGATIVE (Negative); URINE LEUKOCYTES-REFLEX TRACE (Negative); URINE NITRITE-REFLEX NEGATIVE (Negative); URINE PROTEIN (DIPSTICK) TRACE (Negative); URINE SPECIFIC GRAVITY 1.025 (1.005-1.035); URINE UROBILINOGEN 0.2 E.U./dl (0.2-1.0)
[2019-11-22 17:59] LABS: BACTERIA-REFLEX None Seen /HPF (None Seen); CRYSTALS None Seen /LPF (None Seen); SQUAMOUS 0-3 Few /LPF (0-3); URINE RBC >20 Many /HPF (0-2); URINE WBC-REFLEX None Seen /HPF (0-5)
[2019-11-23] VITALS (22 sets, daily range): BP systolic 115–180; BP diastolic 67–95
[2019-11-23 06:00] LABS: ALBUMIN 2.2 g/dL (3.4-5.0); CALCIUM 8.2 mg/dL (8.5-10.1); CREATININE 1.2 mg/dL (0.7-1.3); PHOSPHORUS 3.3 mg/dL (2.5-4.9); POTASSIUM 4.4 mmol/L (3.5-5.1)
[2019-11-23 06:07] LABS: MCH 26.8 pg (26.0-34.0); MCHC 31.5 g/dL (28.0-37.0); RBC 4.47 mil/uL (4.50-6.00); RDW 13.9 % (10.5-14.5); WBC 6.6 thou/uL (4.0-11.0)
--- NOTE | 2019-11-23 08:40 | NUR ---
PT RESPOND TO STIMULI. GETS AGGITATED WHEN NOT SEDATED. FOLLOWS COMMAND. ABLE TO ANSWER QUESTIONS APPROPRIATELY. GODWIN DRAING SIGNIFICANT AMOUT. CARDENE DRIP IS OFF MAINTAINING BLOOD PRESSURE PERIMETER. PATIENT IS MOVING TOWARDS GOAL.
--- NOTE | 2019-11-23 16:45 | NUR ---
BOTH IVS REMOVED. RIGHT HAND IS PAINFUL TO HIM AND SLUGGISH. LEFT A/C WAS PAINFUL FOR HIM WHEN FLUSHED. LEFT A/C WAS A FIELD SITE. RIGHT HAND WAS STARTED HERE.
--- NOTE | 2019-11-23 17:11 | NUR ---
ONE ATTEMPT MADE TO START A NEW IV. SEVERAL NURSES ASSESSED ACCESS. IV TEAM PAGED. WILL CONTINUE TO MONITOR.
--- NOTE | 2019-11-23 18:30 | NUR ---
PATIENT HAD SWALLOW EVALUATION TODAY. DIET CONSISTENCY PER ST RECOMMENDATIONS. HE IS ALERT AND ORIENTED. NEURO ASSESSMENTS DOCUMENTED. HE APPEARS MORE ALERT AND ORIENTED THIS SHIFT. HE FOLLOWS COMMANDS AND IS GETTING STRONGER. HE DOES EXPRESS THAT HIS FINE MOTOR IS NOT COORDINATED PER HIS USUAL AND HIS MOVEMENT WITH ITEMS UP TO HIS MOUTH IS DIFFICULT. HE EXPRESSES HE HAS A SLIGHT HEADACHE, BUT CAN'T RATE IT AND DENIES NEED FOR EVEN TYLENOL FOR IT. HE EXPRESSES THAT IT IS WORSE WHEN HE LAYS FLAT THAN WHEN HE IS UPRIGHT. NURSE TO CONTINUE TO MONITOR PATIENT STATUS. HE IS PROGRESSING TOWARDS PLAN OF CARE OF INCREASING ORIENTATION, MOVEMENT/COORDINATION, AND INCREASING ACTIVITY.
[2019-11-24] VITALS (16 sets, daily range): BP systolic 131–186; BP diastolic 59–86
--- NOTE | 2019-11-24 06:10 | NUR ---
No event last night. Pt remains stable. No changes of neurological status. BP slightly elevated this am, gave hydralazine IV x1 with good result. Continue to monitor any changes.
--- NOTE | 2019-11-24 10:12 | NUR ---
call placed to Dr. Cabrera's office regarding potential transfer to med/surg/tele. Sister present providing much support to pt.
--- NOTE | 2019-11-24 10:20 | NUR ---
LISA FROM DR. MCDERMOTT'S OFFICE RETURNED CALL WITH CONFIRMATION THAT PT IS OK TO TRANSFER.
--- NOTE | 2019-11-24 11:34 | NUR ---
VISITED WITH FAMILY, RESTING QUIETLY NOW. VSS. REPORT GIVEN TO FREDI GRAF. ROOM IN PROCESS OF BEING CLEANED AT THIS TIME.
[2019-11-24 11:52] LABS: CALCIUM 8.6 mg/dL (8.5-10.1); CREATININE 1.4 mg/dL (0.7-1.3); POTASSIUM 4.2 mmol/L (3.5-5.1)
--- NOTE | 2019-11-24 11:59 | NUR ---
FAMILY PRESENT. AWARE OF TRANSFER. TRANSFERRING PT PER BED TO MED/SURG/TELE ROOM # 355 PER ICU BED AND COMPUTING SERVICES DIRECTOR.
--- NOTE | 2019-11-24 12:46 | NUR ---
PATIENT ADMITTED TO ROOM AT THIS TIME. HE IS ALERT ORIENTED X4. FAMILY PRESENT. QUESTIONS ANSWERED. HE DOES NOT SEEM TO BE IN PAIN. RESPIRATOINS ARE EVEN NON LABORED. DRESSING TO HEAD REMAINS INTACT AND DRY. WILL CONT WITH PLAN OF CARE.
--- NOTE | 2019-11-24 15:32 | NUR ---
PATIENT SEEN FOR ACUTE REHAB CONSULT BY JARRETT EDMOND NP WITH DR. JORDAN. OCCUPATIONAL THERAPY AND SPEECH THERAPY EVALUATIONS COMPLETED AND SHOW DEFICITS APPROPRIATE FOR ACUTE REHAB SERVICES. AUTHORIZATION INITIATED WITH PATIENT'S INSURANCE. MUST AWAIT INFORMATION FROM INSURANCE COMPANY TO BE ABLE TO SEND CLINICAL INFORMATION. WEEKEND DRY WALL PLASTERER WILL CHECK ON WEDNESDAY TO SEE IF INFORMATION RECEIVED FROM INSURANCE AND IF RECEIVED WILL SEND THEM PATIENT INFORMATION TO REVIEW FOR AUTHORIZATION. IF QUESTIONS OVER WEEKEND ( TO 11/26/19) CALL DRY WALL PLASTERER CELL PHONE AT [phone]. THANK YOU FOR THIS REFERRAL.
--- NOTE | 2019-11-24 16:42 | NUR ---
SW reviewed chart and spoke with [facility]N manager rehab. Pt transferred to 3W from ICU. N has submitted for insurance authorization for inpt acute rehab. No weekend discharge planned. ROBERT is following to assist as needed with discharge planning.
[2019-11-24] MEDS ORDERED: SYMBICORT160 MCG/4. INH (18:17)
[2019-11-25 04:13] VITALS: BP 196/97
--- NOTE | 2019-11-25 05:39 | NUR ---
Pt. rested quietly during the night when checked on during frequent rounds. He offers no c/o pain. Dressing to his head is clean,dry and intact. Bed alarm is on.
[2019-11-25 07:32] VITALS: BP 168/71
--- NOTE | 2019-11-25 14:27 | NUR ---
PATIENT CONT TO REST IN W/C AT THIS TIME. HE IS ALERT ORIENTED X4. DENIES PAIN. DRESSING REMAIN INTACT TO FOREHEAD. WALKED WITH PT AND TRANSFERED WITH OT TO THE W/C. WILL CONT WITH PLAN OF CARE.
[2019-11-25 16:20] VITALS: BP 179/74
[2019-11-25 20:05] VITALS: BP 146/60
[2019-11-26 03:45] VITALS: BP 174/91
--- NOTE | 2019-11-26 06:23 | NUR ---
ASSUMED CARE AT 0100; ASSESSMENT COMPLETED. BLADDER SCAN AT 0130 SHOWED 230 ML; PT DENIED FEELING THE NEED TO URINATE. ABOUT 0600, PT USED URINAL AND HAD 125 ML OUT DARK TOY URINE; REPORTED FEELING THOUGH BLADDER WAS EMPTY. SOB WITH EXERTION OF SITTING UP TO SIDE OF BED. NO OTHER CONCERNS, WILL CONTINUE TO MONITOR.
[2019-11-26 07:30] VITALS: BP 171/76
--- NOTE | 2019-11-26 08:03 | O ---
[facility] [place] [address] OPERATIVE REPORT Name: KIERA FAIRBANKS Room #: 355-P ADM IN M.R.#: [id number] Admission: 11/20/19 Attend Phys: Bert Velasquez Discharge: Date of : 46 Report #: [id number] THIS REPORT FOR: cc: Martha Wallace MD, Karla L. MD Holladay,Jovani Calzada MD ~ CC: Bert Wallace DATE OF SERVICE: 11/21/2019 PREOPERATIVE DIAGNOSIS: 1. Large left convexity subacute subdural hematoma. 2. Large right convexity subdural hematoma, subacute. OPERATION PERFORMED: 1. On the left side, left frontal and left parietal occipital craniotomies with evacuation of subdural hematoma and placement of drain. 2. Right central craniotomy with evacuation of subdural hematoma and placement of drain. SURGEON: Jovani Cabrera M.D. The operation was done with the assistance of Christiane Tovar APRN who assisted with the craniotomies, evacuation of subdural as well as closure. OPERATIVE INDICATIONS: The patient is a pleasant 69-year-old man who developed problems with right sided weakness and difficulty with balance. He then became confused and was evaluated, he was found to have a right occipital subacute stroke, but in addition, there were very large bilateral subacute subdural hematomas. He has fallen frequently in the last several weeks. Because of their size, I recommended a craniotomies to evacuate the subdurals. I discussed this with the patient as well as the family, they strongly wished for me to go ahead. DESCRIPTION OF PROCEDURE: Following general endotracheal anesthesia, the patient was positioned in a right lateral decubitus position with the left side of the head uppermost. He was then clipped, prepped and draped in the standard fashion. He received 2 grams of Ancef prior to surgery and I outlined an anterior, posterior incisions and made a small posterior incision after he was draped appropriately. I did use Tristan clips on the skin edge. I placed self-retaining retractor. I placed two bur holes and created a flap, which was removed. The dura was opened in a cruciate fashion. There was a considerable amount of dark blood, which was not particularly viscus and I was able to remove a significant portion of blood. I did place a drain and brought out through a [facility] [address] [place] [address] OPERATIVE REPORT Name: KIERA FAIRBANKS Room #: 355-P [facility] IN M.R.#: [id number] Admission: 11/20/19 Attend Phys: Bert Velasquez Discharge: Date of : 46 Report #: [id number] separate incision and then the bone flap was replaced and secured with locking plates and the skin was closed in layers. I then moved anteriorly in a similar fashion and in left anterior lateral calvarium, I made an incision, used Tristan clips. I placed self-retaining retractor, placed a single darian hole and developed a flap, which was then removed. I opened the dura in a cruciate fashion and there was considerable dark blood present, which I evacuated and irrigated with warmed irrigation. I placed a 7 mm drain anteriorly. I brought this out through separate stab incision. We placed a large micro plate and covered the craniotomy defect. I closed the anterior incision with multiple layers and skin issa. We then moved the patient into the left lateral decubitus position, bringing the right sided head uppermost. He was then clipped, prepped and draped in the standard fashion. A central incision was made and darian holes were placed and the flap developed. Self-retaining retractors were used. I opened the dura in a cruciate fashion. There was considerable blood, which I irrigated again with warm saline. I placed a drain 7 mm fully perforated drain, brought out through a separate incision and then the bone flap was replaced and secured with micro plates, irrigated copiously with antibiotic solution and closed the wound in layers and the skin of all 3 incision was closed with skin issa. I felt the surgery went very well. The patient was awakened uneventfully and brought to the recovery room in stable condition. <ELECTRONICALLY SIGNED> By: Jovani Cabrera MD 11/26/19 [id number] Jovani Cabrera MD /nt
--- NOTE | 2019-11-26 08:03 | NUR ---
0700 Report received from Arely he is resting quietly in bed no complaints or concerns voiced.
--- NOTE | 2019-11-26 10:24 | NUR ---
0900 Patient took am medications without difficulty. Does not have any c/o pain at this time, his only complaint is still having double vision. affect is very flat. He wanted to get up on the commode to have a BM.
[2019-11-26 15:57] VITALS: BP 170/77
--- NOTE | 2019-11-26 17:44 | NUR ---
Patient asked to be ambulated in the room. He walked with standby assist to his door and back twice and is now sitting up in the recliner. Linens were changed.
[2019-11-26 19:50] VITALS: BP 190/81
--- NOTE | 2019-11-26 22:50 | NUR ---
PT SITTING UP IN CHAIR, PT ASSISTED TO BED. PT USED WALKER AND GAIT BELT, STEADY AND BALANCED. DRESSINGS ON HEAD DRY AND INTACT. L INNER ARM LINE OF BLISTERS REMAIN INTACT. PT DENIES ANY BLURRED VISION. PT DECLINED HS SNACK. SBP ELEVATED AND HTN MEDS PROVIDED.
[2019-11-27 00:14] VITALS: BP 174/78
[2019-11-27 04:45] VITALS: BP 168/87
[2019-11-27 07:59] VITALS: BP 118/67
[2019-11-27 08:10] VITALS: BP 187/98
[2019-11-27 08:21] VITALS: BP 187/98
[2019-11-27] MEDS ORDERED: TRANDATE 200 M200 M1 PO (09:52)
[2019-11-27] MEDS ORDERED: FLOMAX0.4 MG PO (09:52)
[2019-11-27] MEDS ORDERED: DILANTIN100 MG PO (09:53)
[2019-11-27] MEDS ORDERED: KEFLEX500 M2 PO (09:57)
--- NOTE | 2019-11-27 10:33 | NUR ---
Spoke with Karen Tovar NP in regards to the leakage of clear drainage from the darian hole to the left side of head front issa. It is a very small amount but yesterday the dressings were dry all day. The patient has no complaints.
--- NOTE | 2019-11-27 15:14 | NUR ---
DISCHARGE NOTE: ROBERT reviewed chart and spoke with nursing and attending physician. Pt is medically stable for discharge to [facility]. Insurance authorization obtained. Pt to discharge to [facility] later today. Pt is aware and agreeable with plan. Rehab CM to follow and assist as needed with discharge planning.
--- NOTE | 2019-11-27 16:14 | NUR ---
Report given to Jose F RAI [facility] [place] patient going to room 505. Course of stay and current treatment gone over with Jose F. Patient taken up to 5th floor by wheel chair.
== END 2019-11-27 16:45 | DRG 25 ==
LOC: ER 18:16 → 2N 19:54 → EROBS 19:54 → ICU 19:54 → 2N 20:31 → ICU 11-21 16:40 → 3W 11-24 12:16
PROVIDERS: Internal Medicine Pulmonary Disease; Nurse Practitioner Family; Student in an Organized Health Care Education/Training Program; ADMIT Hospitalist
PROC: 009700Z Drainage of Cerebral Hemisphere with Drainage Device, Open Approach (ICD-10-PCS; principal; 2019-11-23)
DX: S06.5X9A Traumatic subdural hemorrhage with loss of consciousness of unspecified duration, initial encounter (principal); J96.01 Acute respiratory failure with hypoxia; N17.9 Acute kidney failure, unspecified; E87.2 Acidosis; G93.49 Other encephalopathy; E87.1 Hypo-osmolality and hyponatremia; J98.11 Atelectasis; E78.00 Pure hypercholesterolemia, unspecified; E87.5 Hyperkalemia; E78.5 Hyperlipidemia, unspecified; W18.39XA Other fall on same level, initial encounter; E11.22 Type 2 diabetes mellitus with diabetic chronic kidney disease; N18.3 Chronic kidney disease, stage 3 (moderate); I12.9 Hypertensive chronic kidney disease with stage 1 through stage 4 chronic kidney disease, or unspecified chronic kidney disease; R56.9 Unspecified convulsions; Y99.8 Other external cause status; Y92.89 Other specified places as the place of occurrence of the external cause; Y93.89 Activity, other specified; Z79.84 Long term (current) use of oral hypoglycemic drugs; Z79.899 Other long term (current) drug therapy; Z82.49 Family history of ischemic heart disease and other diseases of the circulatory system; Z83.3 Family history of diabetes mellitus; Z82.3 Family history of stroke; Z23 Encounter for immunization
CPT/HCPCS: 10078; 10081; 10879; 50010; 50101; 50172; 50337; 50402; 50455; 50515; 50718; 51007; 51412; 51779; 52018; 54118; 54300; 55106; 56527; 56528; 56532; 62110; 62900; 65020; 65040; 70005

== ENCOUNTER 2019-11-27 13:19 | Inpatient (IN) | payer OTHER ==
[~2019-11-27] VITALS: Ht 175.3 cm; Wt 89.4 kg
--- NOTE | ~2019-11-27 | HC ---
[facility] [place] [address] CONSULTATION Name: KIERA FAIRBANKS Room #: 505-P ADM IN M.R.#: [id number] Admission: 11/27/19 Attend Phys: Ata Zaman MD Discharge: Date of : 46 Report #: [id number] THIS REPORT FOR: cc: Martha Wallace MD,Martha Wayne,Mitchell Stein. PhD ~ CC: Ata Wallace DATE OF SERVICE: 12/02/2019 NEUROBEHAVIORAL STATUS EXAM ATTENDING PHYSICIAN: Ata Zaman M.D. CONSULTING: Mitchell Wayne, PhD. CLINICAL PRESENTATION: The patient is a 69-year-old male admitted to the rehabilitation unit at [facility] for comprehensive inpatient rehabilitation program to improve functional mobility, activities of daily living and self-care and mental status secondary to deficits from a right occipital infarction. The patient is reported to have had bilateral subdural hematoma and is status post bilateral craniotomies with hematoma evacuations on 11/21/2019. He developed an encephalopathy, which appears improved. The patient also had hyperkalemia and acute renal insufficiency that improved and postsurgical seizures which are improved. A complete description of his medical condition and history can be found in his medical record. Neuropsychological consultation was requested to provide assistance in the assessment of cognitive and emotional status and provide recommendations and services. Prior to this most recent admission, he was living independently in his own home. He was driving and independent with instrumental activities of daily living. Reports having had a fall and striking his head leading to the subdural hematomas and subsequent hospitalization. He has 2 children. 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 The patient does report previous use of alcohol, but was vague about how much he was drinking. He was fidgety and restless during the assessment. TECHNIQUES UTILIZED: Clinical interview, review of medical records, staff consultation and behavioral observation, mini mental status exam 2 standard version, clock drawing and verbal fluency assessment and brief abstract reasoning test. EXAMINATION FINDINGS: The patient was alert and cooperative with the assessment. He accurately described events surrounding his admission and [facility] [address] [place] [address] CONSULTATION Name: KIERA FAIRBANKS Garret Room #: 505-P [facility] IN M.R.#: [id number] Admission: 11/27/19 Attend Phys: Ata Zaman MD Discharge: Date of : 46 Report #: [id number] hospitalization. The patient does not report difficulty with cognitive functioning. His primary symptom he describes is sleep disorder with decreased onset. The patient describes his cognition as having returned to baseline. His performance on the MMSE 2 brief version was within normal limits with a score 16 of 16. His performance on the MMSE 2 standard version is within normal limits with a raw score of 30 of 30. Performance in verbal fluency assessment suggests deficits in letter and category fluency. Letter fluency was in the borderline range with a raw score of 13, T score 31 and percentile rank of 3. Category fluency was extremely low with a raw score of 20, T score of 22 and percentile rank of less than 1. Overall, total fluency was less than 1 with a raw score of 33, T score at 20. Brief abstract reasoning test was in the impaired range with a raw score of 5 of 8. The patient was able to draw a clock and set the hands at a designated time. The patient appears to be presenting with deficits in executive functioning. Higher level planning and problem solving are likely to have been affected. 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 He also drinks 2 glasses of whiskey according to medical records 3 times a week, which may be contributing to the severity of concussion. RECOMMENDATIONS: The patient will likely benefit from a neuropsychological assessment upon his return home. Neuropsych assessment will be necessary to clarify the severity of cognitive deficits. He reports having been independent with activities of daily living and driving. Assistance in the management of medication, finances and nutrition is recommended. The patient should discontinue alcohol use at this time. Thank you very much for allowing me to provide the consultation on this patient. By: [id number] Mitchell Wayne, PhD /nt
[~2019-11-27 13:19] MED LIST changes: +DILANTIN100 MG PO; +FLOMAX0.4 MG PO; +KEFLEX500 M2 PO; +REGLAN 5 MG TAB5 MG PO; +ROSUVASTATIN CA10 MG PO; +SYMBICORT160 MCG/4. INH; +TRANDATE 200 M200 M1 PO
[2019-11-27 16:30] VITALS: BP 191/96
--- NOTE | 2019-11-27 19:40 | NUR ---
PATIENT ALERT AND ORIENTED AND TRANSFERRED FROM ROOM 355 TO ROOM 505 ABOUT 1645 IN STABLE CONDITION WITH SISTER AT BEDSIDE. PATIENT RECEIVED EVENING MEAL TRAY AND ALSO WALKED WITH WALKER TO BATHROOM. DURING HANDOFF, NIGHT RN AND THIS NURSE NOTICE CLEAR FLUID STEADILY DRAINING FROM LEFT FRONT OF FOREHEAD WHEN CHANGING DRESSING. NIGHT RN WILL CONTACT SURGEON REGARDING DRAINAGE.
--- NOTE | 2019-11-28 00:14 | NUR ---
PT ASSESSMENT COMPLETED. ONE OF PTS 3 SURGICAL SITES DRAINING CLEAR DRAINAGE AT CHANGE OF SHIFT. WITH DAY RN ELENA CHANGED DRESSING LOCATED ON THE FRONT/LEFT HEAD. WHEN REMOVING THE DRESSING NOTICED THAT THERE WAS A SMALL AREA DRIPPING NOT LOCATED ON THE SURGICAL SITE THAT WAS PULSATING. CONTACTED NEUROSURGERY AND INFORMED SURGICAL MOLASSES COLORING OPERATOR. MOLASSES COLORING OPERATOR AWARE AND WILL LOOK AT SITE IN THE MORNING. NO NEW ORDERS. INFORMED INFORMATION TECHNOLOGY AUDITOR ABOUT ELEVATED BP AND THAT PTS BP HAS BEEN ELEVATED ON 3W WELL. MOLASSES COLORING OPERATOR ASKED TO HAVE RENETTA GUSMAN CONTACTED ABOUT THE BP. INFORMED UZMA. SHE CAME TO SEE THE PATIENT AND HAD RN RECHECK A MANUAL BP. UZMA PLACED NEW ORDERS AT HS. ORDERS FOLLOWED. WILL CONTINUE TO MONITOR PT ORDERED BY RENETTA GUSMAN.
[2019-11-28 02:14] VITALS: BP 185/92
[2019-11-28 06:03] VITALS: BP 170/90
[2019-11-28 06:25] LABS: HEMATOCRIT 30.5 % (42.0-52.0); HEMOGLOBIN 9.9 gm/dL (14.0-18.0); MCH 27.1 pg (26.0-34.0); MCHC 32.5 g/dL (28.0-37.0); MCV 83.4 fL (80.0-100.0); RBC 3.65 mil/uL (4.50-6.00); WBC 5.7 thou/uL (4.0-11.0)
[2019-11-28 06:49] LABS: CALCIUM 8.4 mg/dL (8.5-10.1); CREATININE 1.2 mg/dL (0.7-1.3); MAGNESIUM 1.5 mg/dL (1.8-2.4); POTASSIUM 4.2 mmol/L (3.5-5.1)
[2019-11-28 07:30] VITALS: BP 187/96
[2019-11-28 10:30] VITALS: BP 157/85
--- NOTE | 2019-11-28 12:52 | NUR ---
team meeting, recommendation: re team with anticipated dc on 12/07, going to have to find assistance for his sig other at home, rt his restriction.
[2019-11-28 18:00] VITALS: BP 192/93
[2019-11-28 19:10] VITALS: BP 183/96
--- NOTE | 2019-11-28 19:58 | NUR ---
PATIENT ALERT AND ORIENTED AND COOPERTIVE WITH POC. BRYCE, SON, AT BEDSIDE THIS AFTERNOON. SISTER, EMRE, AT BEDSIDE EARLIER TODAY. DR. KHAN, AND JIMENA, RENETTA PLACED STAPLE IN FOREHEAD TO STOP FLUID LEAKAGE FROM A PREVIOUS DRAIN PLACEMENT. DR. GAYTAN CONTACTED AND WOULD LIKE BP TO REMAIN BELOW 160/90 AND WOULD LIKE HOSPITALIST TO MANAGE BP'S.
--- NOTE | 2019-11-28 23:24 | NUR ---
PT ASSESSMENT DONE AND VSS. MEDS GIVEN AND WELL TOLERATED. DRESSING TO TOP OF HEAD DRY/INTACT TO DRAIN SITE. DEBI INTACT TO 3 HEAD FABIO HOLE SITES. FALL PRECAUTIONS IN PLACE. SLEEPING WELL OVERNIGHT. HOURLY ROUNDING. CALL LIGHT IN REACH. WILL CONTINUE TO MONITOR.
[2019-11-29] VITALS (8 sets, daily range): BP systolic 169–194; BP diastolic 82–96
--- NOTE | 2019-11-29 12:05 | NUR ---
PT ALERT AND ORIENTED TIMES FOUR. BP ELEVATED OTHER VSS. PT DENIES PAIN/SOA. DEBI TO HEAD INTACT. PT WORKED WELL WITH PT/OT TODAY. PT PROGRESSING TOWARDS POC GOALS.
--- NOTE | 2019-11-29 22:28 | NUR ---
PT ASSESSMENT COMPLETED AND BP ELEVATED. BP MEDS GIVEN. UP TO THE BATHROOM WITH ASST/GAIT/WALKER. UNSTEADY AT TIMES. SUTURES ON HEAD INTACT. DRESSING ON FRONT LEFT HEAD DRY AND INTACT. PT DENIES PAIN. SUPPORTIVE SON AT BEDSIDE EARLY DURING SHIFT. SLEEPING WELL AT THIS TIME. WILL CONTINUE TO MONITOR FREQUENTLY.
[2019-11-30 05:51] VITALS: BP 190/82
--- NOTE | 2019-11-30 06:03 | NUR ---
SPOKE WITH RING CONDUCTOR UZMA ABOUT PT BP. GAVE PRN BP MEDS ORDERED. AGAIN PT BP JUMPED UP THIS AM. GAVE PRN DOSE AGAIN. PER RING CONDUCTOR HAVE DAY RN CONTACT PRIMARY FOR FURTHER ORDERS REGARDING BP TODAY.
[2019-11-30 08:00] VITALS: BP 152/84
--- NOTE | 2019-11-30 19:30 | NUR ---
ASSUMED CARE OF PT AT 0700. PT IS A&OX4 AND VITAL SIGNS ARE STABLE. BLOOD PRESSURE IN 150S SYSTOLIC, NO CHANGES TO MEDICATIONS AT THIS TIME. DENIES PAIN AND PARTICIPATED IN SCHEDULED THERAPIES. ORDERS FOR HEAD CT THIS SHIFT. ACCU CHECKS ACHS AND MANAGED WITH PO MEDICATIONS AND INSULIN PER ORDERS. SURGICAL SITES TO HEAD WELL APPROXIMATED, NO DRAINAGE AT SITES, DRESSING C/D/I. FALL PRECAUTIONS IN PLACE AND NURISNG WILL CONTINUE TO MONITOR.
[2019-11-30 21:06] VITALS: BP 167/79
[2019-11-30 21:11] VITALS: BP 120/73
--- NOTE | 2019-12-01 03:55 | NUR ---
ASSUMED CARE AT APPROX 1900 EVENING 11/29. PT ALERT AND ORIENTED X4, APPROPRIATE AND COOPERATIVE. PT UP TO BATHROOM WITH WALKER AND STANDBY ASSIST TOLERATING WELL. PT APPEARS TO BE SLEEPING SOUNDLY WITH HOURLY ROUNDING CHECKS. BED ALARM ON AND CALL LIGHT IN REACH. WILL CONTINUE TO MONITOR.
[2019-12-01 10:16] LABS: APTT 25.6 Seconds (24.5-32.8); PROTIME 10.4 Seconds (9.3-11.4)
[2019-12-01 19:24] VITALS: BP 163/80
--- NOTE | 2019-12-01 19:33 | NUR ---
PATIENT ALERT AND ORIENTED. PATIENT PARTICIPATED IN POC AND SISTER AT LUNCH TABLE TODAY. BRYCE, SON AT BEDSIDE THIS AFTERNOON. PATIENT HAD EPISODE OF NAUSEA AND VOMITING AT LUNCH, BUT FELT BETTER AFTER VOMITING AND HAD NO FUTHER NAUSEA OR VOMITING ON THIS SHIFT. NO BM THIS SHIFT.
--- NOTE | 2019-12-01 22:41 | NUR ---
PT ASSESSMENT DONE AND VSS. PT DID NOT EAT SUPPER SO METFORMIN HELD THIS PM. BS WAS 114. NO INSULIN GIVEN. DID ASK FOR JELLO FOR A SNACK. 2 GIVEN. BP 163/80. NO HYDRALAZINE GIVEN PARAMETERS WHERE TOO CLOSE TO CUT OFF. INCISIONS TO TOP OF HEAD D/I. OLD DRAIN SITE WITH C/D/I DRESSING. OTHER MEDS GIVEN AND WELL TOLERATED. FALL PRECAUTIONS IN PLACE. SLEEPING WELL. HOURLY ROUNDING. CALL LIGHT IN PLACE. WILL CONTINUE TO MONITOR.
[2019-12-02 07:30] VITALS: BP 161/69
[2019-12-02 12:00] VITALS: BP 133/66
[2019-12-02 17:00] VITALS: BP 169/78
--- NOTE | 2019-12-02 18:25 | NUR ---
ASSUMED CARE OF PT AT 0700. PT IS A&OX4 AND VITAL SIGNS ARE STABLE. PT DENIES PAIN AND PARTICIPATED IN SCHEDULED THERAPIES. ACCU CHECKS ACHS AND MANAGED WITH PO MEDICAITONS AND INSULIN PER ORDER. VITAL SIGNS OBTAINED EVERY 4 HOURS. DRESSING TO HEAD C/D/I, SURGICAL SITE WITH DEBI INTACT, WELL APPROXIMTED, NO DRAINAGE, REDNESS, WARMTH OR EDEMA. DENIES NAUSEA AND EMESIS THIS SHIFT. HR REGULAR, LUNG SOUNDS CLEAR IN ALL LOBES, ABDOMINAL SOUNDS ACTIVE IN ALL QUADRANTS. CALLS APPROPRIATLEY FOR ASSISTANCE, FALL PRECAUTIONS IN PLACE, NURSING WILL CONTINUE TO MONITOR.
[2019-12-02 19:20] VITALS: BP 172/82
--- NOTE | 2019-12-02 23:21 | NUR ---
PT ASSESSMENT DONE AND VSS. MEDS GIVEN AND WELL TOLERATED. FALL PRECAUTIONS IN PLACE. SLEEPING WELL OVERNIGHT. HOURLY ROUNDING. CALL LIGHT IN REACH. WILL CONTINUE TO MONITOR.
[2019-12-03 03:00] VITALS: BP 173/82
[2019-12-03 08:00] VITALS: BP 145/77
--- NOTE | 2019-12-03 14:26 | NUR ---
ASSUMED CARE OF PT AT 0715. PT IS A&OX4. IS ON ROOM AIR. DENIES PAIN IN HEAD. IS STABLE. DEBI & DRSG TO HEAD C/D/I INTACT. HEMATOMA NOTED. REMAINS ON SEIZURE PRECAUTIONS & Q4H VITALS. PT IS IMPULSIVE; PT EDUCATION REINFORCED WITH PT. FALL PRECAUTIONS & HOURLY ROUNDING MAINTAINED. LABS REVIEWED. WILL CONTINUE TO MONITOR. PT IS CURRENTLY RESTING COMFORTABLY IN BED. CALL LIGHT WITHIN REACH.
[2019-12-03 20:20] VITALS: BP 174/78
--- NOTE | 2019-12-04 05:33 | NUR ---
ASSUMED CARE FROM DAY SHIFT PT UP TO BATHRROM GAIT STEADY SPEECH CLEAR BUT SLOW , DENIES PAIN , DEBI ON RIGHT AND LEFT SIDE OF HEAD CLEAN DRY AND INTACT. NO CHANGES NOTED IN ASSESSMENT RESTED WELL THROUGHOUT HOURLY ROUNDS, WILL REPORT CHANGES OR ABNORMAL FINDINGS.
[2019-12-04 07:35] VITALS: BP 159/67
--- NOTE | 2019-12-04 07:41 | NUR ---
ASSUMED CARE OF PT AT 0715. PT IS A&OX4. IS ON ROOM AIR. DENIES PAIN IN HEAD AT THIS TIME. DEBI & DRSG C/D/I. PT IS STABLE. IS SITTING UP IN BED HAD JUST FINISHED BREATHING TREATMENT WITH RT. BED ALARM ON. IS UP WITH STANDBY ASSIST, GB, WALKER. FALL PRECAUTIONS CONTINUED THIS SHIFT. LABS & VITALS REVIEWED. CALL LIGHT WITHIN REACH. SEIZURE PRECAUTIONS MAINTAINED. WILL CONTINUE TO MONITOR.
--- NOTE | 2019-12-05 02:33 | NUR ---
assumed care at approx 1900 evening 12/03. pt alert and oriented x4, appropriate and cooperative. pt took hs meds with water tolerating well. pt up to bathroom with standby assist with walker tolerating well.pt appears to be sleeping soundly with hourly rounding checks. bed alarm on and call light in reach. will continue to monitor.
[2019-12-05 06:03] LABS: ABSOLUTE NEUTROPHILS 3.6 thou/uL (1.4-8.2); BASOPHILS 1.2 % (0.0-2.0); EOSINOPHILS 3.9 % (0.0-3.0); HEMATOCRIT 31.7 % (42.0-52.0); HEMOGLOBIN 10.5 gm/dL (14.0-18.0); LYMPHOCYTES 24.6 % (24.0-44.0); MCH 27.5 pg (26.0-34.0); MCHC 33.1 g/dL (28.0-37.0); MCV 83.3 fL (80.0-100.0); MONOCYTES 5.7 % (1.0-8.0); PLATELET COUNT 205 thou/uL (150-400); POLYS 64.6 % (36.0-66.0); RBC 3.81 mil/uL (4.50-6.00); RDW 13.8 % (10.5-14.5); WBC 5.6 thou/uL (4.0-11.0)
[2019-12-05 06:20] LABS: CALCIUM 9.2 mg/dL (8.5-10.1); CREATININE 1.3 mg/dL (0.7-1.3); MAGNESIUM 1.3 mg/dL (1.8-2.4); POTASSIUM 4.8 mmol/L (3.5-5.1)
[2019-12-05 07:20] VITALS: BP 163/83
--- NOTE | 2019-12-05 13:58 | NUR ---
team meeting, dc 13th [facility] with (pt, ot, st, and nursing). no lifting at home and not caring for sig other dallin when goes home. still has issa open to air. mod i in room on with fww, possible will need fww. will cont following as needed for dc needs.
--- NOTE | 2019-12-05 14:21 | NUR ---
ASSUMED CARE OF PT AT 0700. PT IS A&OX4 AND VITAL SIGNS ARE STABLE. PT DENIES PAIN AND PARTICIPATED IN SCHEDULED THERAPIES. SURGICAL SITES TO THE HEAD WELL APPROXIMATED, DEBI INTACT, MINIMAL REDNESS, SIGNIFICANT SWELLING TO AREAS OF SURGICAL SITES. ACCU CHECKS ACHS AND MANAGED WITH PO MEDICATIONS AND INSULIN. HTN DISCUSSED WITH PROVIDER AND MEDICATIONS ADJUSTED. CALLS APPROPRIATELY FOR ASSISTANCE, FALL PRECAUTIONS IN PLACE, NURSING WILL CONTINUE TO MONITOR.
[2019-12-05 19:29] VITALS: BP 160/89
[2019-12-06 00:17] VITALS: BP 162/71
[2019-12-06 00:19] VITALS: BP 162/71
--- NOTE | 2019-12-06 02:17 | NUR ---
assumed care at approx 1900 evening 12/04. pt sitting up in bed at change of shift watching tv. pt alert and oriented x4, appropriate and cooperative. pt up to bathroom to void with standby assist. pt took hs meds with water tolerating well. pt appears to be sleeping soundly with hourly rounding checks. bed alarm on and call light in reach. will continue to monitor.
[2019-12-06 06:25] VITALS: BP 157/73
[2019-12-06 08:00] VITALS: BP 149/75
--- NOTE | 2019-12-06 10:00 | NUR ---
leslie visited with nir at bedside, he was up in the recliner chair. he wanted to talk about hh, list of choice provided " [facility] to [facility]"/pt. referral sent to [facility].
[2019-12-06 12:30] VITALS: BP 134/66
--- NOTE | 2019-12-06 15:59 | NUR ---
Assumed patient care at 0715. Vital signs stable, no prn Hydralazine needed in between scheduled doses. Speech is clear, he is alert and oriented x's 4. Family has been at bedside this afternoon. Paulino remain clean, dry and intact to head. Patient requires stand-by assist at this time. He took a shower, brushed his teeth with therapy standing by and giving verbal prompts. Blood sugars have not required Sliding Scale coverage thus far today. Insulin Glargine has been discontinued (family and patient educated per this, verbalized an understanding). Patient is on Room Air. He is pleasant, calm and cooperative. Plan is to Discharge on Wednesday. Patient and family educated that he will not be allowed to run a vaccum, drive and/or will not be allowed to lift anything until released by his Physician. Also, patient will Discharge with Home Health Services. Will continue to monitor and report to on-coming nurse.
[2019-12-06 19:42] VITALS: BP 157/88
[2019-12-07] VITALS: BP 178/85
--- NOTE | 2019-12-07 03:40 | NUR ---
No acute concersn overnight. pt a&ox4. denies any pain or a headache. stictches to head intact with no drainage. there is some swollen noted on the the sttches to the left side of pt's head. pt takes meds whole with water. ambulates with standby assist to the bathroom. high BP treated with scheduled meds. no s/s of distress, will cont to monitor
[2019-12-07 08:00] VITALS: BP 142/62
[2019-12-07 12:07] VITALS: BP 129/68
--- NOTE | 2019-12-07 13:58 | NUR ---
ASSUMED CARES AT 0700. PT AWAKE, ALERT AND ORIENTED*4. DENIES PAIN. VITALS REMAIN STABLE. HEAD INCISIONS REMAIN DRY AND DEBI ARE INTACT. TO DC DEBI ON 12/12 AT THE NEURO CLINIC. PT IS NOW MODIFIED INDEPENDENT IN ROOM AND TOLERATES WELL. Q1H VISUAL CHECKS. CALL LIGHT WITHIN REACH. FALL PRECAUTIONS IN PLACE.
[2019-12-07 16:07] VITALS: BP 139/73
[2019-12-07 19:07] VITALS: BP 157/83
--- NOTE | 2019-12-08 00:22 | NUR ---
1900 ASSUMED CARE OF PT AFTER BEDSIDE REPORT 2029 ASSESSMENT COMPLETED AND MEDS GIVEN PER NOV. PT ALERT AND ORIENTED X 4 INCISION SITES CLEAN AND DRY WITH HEMATOMAS UNDER DEBI, PT ABLE TO POSITIONS SELF AND CAN AMBULATE TO BATHROOM INDEPENDENTLY, NO COMPLAINTS AT THIS TIME, WILL CONTINUE TO MONITOR, SCDS IN PLACE.
[2019-12-08 00:32] VITALS: BP 167/64
[2019-12-08 01:42] VITALS: BP 156/71
[2019-12-08 05:39] VITALS: BP 157/74
[2019-12-08 07:23] VITALS: BP 157/74
--- NOTE | 2019-12-08 07:30 | NUR ---
pt dc home today, family like to picking tech by 10 am. [facility] (pt ,ot, st, and nursing), then possible outpt therapy if needed. recommend family assist with pills and bills, no driving until cleared by MD. cont with follow up outpt appointments as ordered by MD's
[2019-12-08 08:00] VITALS: BP 131/65
[2019-12-08] MEDS ORDERED: SINGULAIR 10 MG10 M1 PO (08:13)
[2019-12-08] MEDS ORDERED: PEPCID40 MG PO (08:13)
[2019-12-08] MEDS ORDERED: TRANDATE 200 M200 M1 PO (08:13)
[2019-12-08] MEDS ORDERED: FLOMAX0.4 MG PO (08:13)
[2019-12-08] MEDS ORDERED: DILANTIN100 MG PO (08:13)
[2019-12-08] MEDS ORDERED: HYDRALAZINE 2525 MG PO (08:13)
--- NOTE | 2019-12-08 09:17 | NUR ---
FAXED DC ORDERS/SUMMARY TO [facility] RECEIVED CONFIRMATION AND THEY WILL NOTIFY PT TIME OF VISITS.
[2019-12-08] MEDS ORDERED: MAG-OXIDE400 MG PO (10:29)
[2019-12-08 10:45] VITALS: BP 157/74
--- NOTE | 2019-12-08 13:35 | H ---
[facility] [place] [address] HISTORY AND PHYSICAL Name: KIERA FAIRBANKS Room #: 505-P [facility] IN M.R.#: [id number] Admission: 11/27/19 Attend Phys: Ata Zaman MD Discharge: 12/08/19 Date of : 46 Report #: [id number] THIS REPORT FOR: cc: Martha Wallace MD,Martha Zaman,Ata Conner MD ~ CC: Ata Wallace DATE OF SERVICE: 11/27/2019 HISTORY AND PHYSICAL AND POST-ADMISSION PHYSICIAN EVALUATION HISTORY OF PRESENT ILLNESS: The patient is a 69-year-old -[place]aur[place] male originally admitted to [facility] on 11/20/2019 with right-sided weakness and a fall at home. He was found to have a right occipital infarct and bilateral subdural hematoma. He underwent craniotomy on 11/21/2019. This was left and right craniotomy with placement of drain and evacuation of subdural hematoma. The patient had some problems with confusion, electrolyte abnormalities, and his renal insufficiency improved. He was placed on seizure prophylaxis. He does have some documented encephalopathy, which is improved overall. He has had a significant overall functional decline with all of this and now has been admitted for acute in-hospital inpatient rehabilitation. PAST MEDICAL HISTORY: 1. History of renal insufficiency. 2. Viral gastroenteritis. MEDICATIONS: Please see the full medication listing. ALLERGIES: No known drug allergies. SOCIAL HISTORY: Lives at home with his significant other. This is a house, there is a ramp to get in. His significant other has multiple sclerosis, is in a wheelchair and he is basically her caregiver. He does have an involved son in the area and there are some other family members involved. He was premorbidly independent, ambulatory without gait aids, was independent with ADLs and IADLs and was driving. ALLERGIES: No known drug allergies. HABITS: Nonsmoker. Alcohol use several times a week. FAMILY HISTORY: Includes heart disease, diabetes, and hypertension. Sister had a CVA. [facility] [address] [address] HISTORY AND PHYSICAL Name: KIERA FAIRBANKS Room #: 505-P [facility] IN M.R.#: [id number] Admission: 11/27/19 Attend Phys: Ata Zaman MD Discharge: 12/08/19 Date of : 46 Report #: [id number] PAST SURGICAL HISTORY: No other surgical history. REVIEW OF SYSTEMS: No complaints of headache, has had some drainage from the left incision. He did have some prior visual problems. No chest pain, shortness of breath, abdominal discomfort, bowel or bladder changes, numbness, tingling, extremity pain complaints, or other skin care issues. PHYSICAL EXAMINATION: GENERAL: This is a pleasant 69-year-old -Maur[place] male in no obvious distress. VITAL SIGNS: Last recorded temperature 98.1, pulse 81, respirations 16, and blood pressure 187/98. The patient is alert. HEENT: He does have bilateral scalp dressings in place. NEUROLOGIC: He is alert. Facies are symmetric. Otherwise, EOMs are full. No obvious visual field neglect to confrontation. He is able to verbalize quite well. Follows basic commands without difficulty. CHEST: Sounded clear to auscultation. CARDIOVASCULAR: Regular rate and rhythm. ABDOMEN: Bowel sounds positive, nontender. GENITOURINARY AND RECTAL: Deferred. EXTREMITIES: He has functional range of motion of both upper extremities. Strength is grade 4+/5. DTRs are trace to 1. Lower extremities, no focal calf swelling, functional range of motion, strength is grade 4+/5. DTRs are trace to 1. Transfers, have been agreed mod assist with short distance ambulation with a walker with assistance. He has had some expressive language deficits. He appeared to verbalize reasonably well with basic questions, however. ASSESSMENT: A 69-year-old -Maur[place] male with the following problem list: 1. Right occipital infarct. 2. Bilateral subdural hematoma, status post bilateral craniotomies with hematoma evacuations on 11/21/2019. 3. Encephalopathy, which appears improved. 4. Hyperkalemia/acute renal insufficiency, improved. 5. Postsurgical seizures. Neurology has been involved. PLAN: The patient has been admitted for acute in-hospital inpatient rehabilitation. From a postadmission physician evaluation perspective, there are no relevant changes since the preadmission screening. Please see the above prior and current medical and functional conditions and comorbidities. Please see the patient's previous and current functional status. As far as risk of complications, the patient has multiple medical comorbidities as noted above. Initial plan of care involves the interdisciplinary acute inpatient rehabilitation program. Measurable functional goals would be for the patient to [address] [address] HISTORY AND PHYSICAL Name: KIERA FAIRBANKS Room #: 505-P [facility] IN M.R.#: [id number] Admission: 11/27/19 Attend Phys: tAa Zaman MD Discharge: 12/08/19 Date of : 46 Report #: [id number] become modified independent with transfers, mobility, and ADLs. Prognosis is reasonably good with estimated length of stay probably at least 10 days to 2 weeks pending progress. Potential barriers would include his multiple medical comorbidities and decreased functional status. <ELECTRONICALLY SIGNED> By: Ata Zaman MD 12/08/19 1335 [id number] [id number] Ata Zaman MD /nt
--- NOTE | 2019-12-08 13:35 | PLAN ---
[facility] [place] [address] REHAB UNIT PLAN OF CARE Name: KIERA FAIRBANKS Room #: 505-P [facility] IN M.R.#: [id number] Admission: 11/27/19 Attend Phys: Ata Zaman MD Discharge: 12/08/19 Date of : 46 Report #: [id number] THIS REPORT FOR: //name// [facility] DATE OF SERVICE: 11/29/2019 PROGRESS NOTE/OVERALL PLAN OF CARE SUBJECTIVE: The patient is seen back today in followup. He is in no distress. Temperature 98.1, pulse 72, respirations 20, blood pressure 192/93. He is alert. His left scalp dressing is in place. He has the right scalp incision with issa in place appears to be healing well. He is pleasant and alert. No focal calf swelling. Transfers are contact guard assistance with gait 150 feet with a front-wheeled walker, needing assistance. As far as safety awareness he has some gait instability and path deviation. Occasionally catches right foot with swing. In occupational therapies working in therapies needing min assist for bathing, min assist, lower body dressing. In speech therapy, he does have some cognitive deficits that are noted with [id number] memory deficits. As far as swallowing, he is on mechanical soft all liquid diet. ASSESSMENT: 1. Right occipital infarct. 2. Bilateral subdural hematoma, status post bilateral craniotomy. 3. Encephalopathy, which has been improving/resolving. 4. Hyperkalemia, acute renal insufficiency, resolving. 5. History of seizures. 6. Hypertension. 7. Hyperlipidemia. 8. Diabetes mellitus type 2. PLAN: The overall plan of care is based on the preadmission screen, post-admission physician evaluation and information garnered from therapy assessments. I appreciate Neurosurgery follow up with stable placed over the left anterior drain site where there was a small amount of spinal fluid leaking. As far as the overall plan of care. 1. Estimated length of stay is currently for discharge next 12/08/2019. 2. Medical prognosis is reasonably good. 3. Anticipated interventions includes the interdisciplinary acute inpatient rehabilitation program. 4. Anticipated functional outcomes would be for the patient to become modified independent with transfers, mobility, ADLs and improvement with cognition, so he [address] [address] REHAB UNIT PLAN OF CARE Name: KIERA FAIRBANKS Room #: 505-P [facility] IN .R.#: [id number] Admission: 11/27/19 Attend Phys: Ata Zaman MD Discharge: 12/08/19 Date of : 46 Report #: [id number] can return back to the home setting. 5. Discharge destination would be back home. He has been staying with his significant other, but will not be able to be her caregiver. We will need to have increased family assistance. 6. Expected therapy by discipline includes PT and OT and speech 1 hour per day each five days a week throughout the duration of the acute inpatient rehabilitation stay. <ELECTRONICALLY SIGNED> By: Ata Zaman MD 12/08/19 1335 0741 1443 Ata Zaman MD /[facility]
--- NOTE | 2019-12-08 18:17 | NUR ---
PATIENT ALERT AND ORIENTED WITH SON AT BEDSIDE WITH NURSE PRACTICIONER AND EXTENSIVELY EXPLAINED DISCHARGE INSTRUCTIONS. DISCHARGED TO HOME IN STABLE CONDITION WITH DISCHARGE INSTRUCTIONS, PRESCPRITIONS ESCRIBED TO [facility] AND ALL PERSONAL BELONGINGS VIA WHEELCHAIR IN PERSONAL VEHICLE.
== END 2019-12-08 11:41 | disposition home health service (06) | DRG 56 ==
LOC: ENTRNSPT 12-08 11:35 → EDTRNSPTSTS 12-08 11:37
PROVIDERS: Hospitalist; Nurse Practitioner; ADMIT Physical Medicine & Rehabilitation
DX: I69.351 Hemiplegia and hemiparesis following cerebral infarction affecting right dominant side (principal); I63.531 Cerebral infarction due to unspecified occlusion or stenosis of right posterior cerebral artery; I62.00 Nontraumatic subdural hemorrhage, unspecified; G93.40 Encephalopathy, unspecified; J98.11 Atelectasis; E87.5 Hyperkalemia; N28.9 Disorder of kidney and ureter, unspecified; E78.5 Hyperlipidemia, unspecified; I10 Essential (primary) hypertension; E11.9 Type 2 diabetes mellitus without complications; R56.9 Unspecified convulsions; W18.39XA Other fall on same level, initial encounter; Y93.89 Activity, other specified; Y92.098 Other place in other non-institutional residence as the place of occurrence of the external cause; Y99.8 Other external cause status; Z82.3 Family history of stroke; Z83.3 Family history of diabetes mellitus; Z82.49 Family history of ischemic heart disease and other diseases of the circulatory system
CPT/HCPCS: 10112

== ENCOUNTER → 2019-12-13 | Outpatient (CLI) | payer OTHER ==
[~2019-12-13] MED LIST changes: +HYDRALAZINE 2525 MG PO; +MAG-OXIDE400 MG PO; +SINGULAIR 10 MG10 M1 PO
== END ==
LOC: CAT 12:53
DX: S06.5X0D Traumatic subdural hemorrhage without loss of consciousness, subsequent encounter (principal); Z98.890 Other specified postprocedural states; X58.XXXD Exposure to other specified factors, subsequent encounter

== ENCOUNTER → 2020-01-11 | Outpatient (CLI) | payer OTHER | LOC: CAT 01-10 13:51 → EDSTATUS 01-10 16:14 → CAT 10:06 | DX: S06.5X0A Traumatic subdural hemorrhage without loss of consciousness, initial encounter (principal); X58.XXXA Exposure to other specified factors, initial encounter; Y93.89 Activity, other specified; Y92.89 Other specified places as the place of occurrence of the external cause; Y99.8 Other external cause status ==

== ENCOUNTER → 2020-01-15 | Outpatient (CLI) | payer OTHER | LOC: CAT 08:12 | DX: S06.5X0A Traumatic subdural hemorrhage without loss of consciousness, initial encounter (principal); X58.XXXA Exposure to other specified factors, initial encounter; Y93.89 Activity, other specified; Y92.89 Other specified places as the place of occurrence of the external cause; Y99.8 Other external cause status ==

== ENCOUNTER → 2020-01-24 | Outpatient (CLI) | payer OTHER | LOC: CAT 10:27 | DX: S06.5X0A Traumatic subdural hemorrhage without loss of consciousness, initial encounter (principal); X58.XXXA Exposure to other specified factors, initial encounter; Y93.89 Activity, other specified; Y92.89 Other specified places as the place of occurrence of the external cause; Y99.8 Other external cause status ==

== ENCOUNTER → 2020-02-26 | Outpatient (CLI) | payer OTHER | LOC: CAT 02-21 08:07 | DX: S06.5X0A Traumatic subdural hemorrhage without loss of consciousness, initial encounter (principal); X58.XXXA Exposure to other specified factors, initial encounter; Y93.89 Activity, other specified; Y92.89 Other specified places as the place of occurrence of the external cause; Y99.8 Other external cause status ==

== ENCOUNTER → 2020-04-16 | Outpatient (CLI) | payer OTHER | LOC: CAT 13:01 | PROVIDERS: ATTEND Neurological Surgery | DX: S06.5X0A Traumatic subdural hemorrhage without loss of consciousness, initial encounter (principal); R22.0 Localized swelling, mass and lump, head; R51 Headache; X58.XXXA Exposure to other specified factors, initial encounter; Y93.89 Activity, other specified; Y92.89 Other specified places as the place of occurrence of the external cause; Y99.8 Other external cause status ==

== ENCOUNTER → 2020-07-19 | Outpatient (CLI) | payer OTHER | LOC: CAT 09:02 | PROVIDERS: ATTEND Neurological Surgery | DX: G31.89 Other specified degenerative diseases of nervous system (principal) ==

== ENCOUNTER 2020-10-30 19:22 | Emergency (ER) | payer OTHER ==
[~2020-10-30] VITALS: Ht 175.3 cm; Wt 87.5 kg
[2020-10-30] MEDS ORDERED: LABETALOL HCL100 MG PO (19:56)
[2020-10-30] MEDS ORDERED: VITAMIN D325 MC3 PO (19:58)
[2020-10-30 20:11] LABS: ABSOLUTE NEUTROPHILS 2.4 thou/uL (1.4-8.2); BASOPHILS 1.3 % (0.0-2.0); EOSINOPHILS 3.7 % (0.0-3.0); HEMATOCRIT 36.3 % (42.0-52.0); HEMOGLOBIN 11.3 gm/dL (14.0-18.0); LYMPHOCYTES 41.3 % (24.0-44.0); MCH 25.5 pg (26.0-34.0); MCHC 31.1 g/dL (28.0-37.0); PLATELET COUNT 159 thou/uL (150-400); POLYS 45.7 % (36.0-66.0); RBC 4.43 mil/uL (4.50-6.00); RDW 15.4 % (10.5-14.5); WBC 5.2 thou/uL (4.0-11.0)
[2020-10-30 20:18] LABS: ALBUMIN 3.5 g/dL (3.4-5.0); CALCIUM 8.6 mg/dL (8.5-10.1); TOTAL BILIRUBIN 0.1 mg/dL (0.2-1.0); TOTAL PROTEIN 6.7 g/dL (6.4-8.2)
[2020-10-30 20:21] LABS: POTASSIUM 6.2 mmol/L (3.5-5.1)
[2020-10-30] MEDS ORDERED: VELTASSA8.4 GM PO (20:33)
[2020-10-30 20:43] VITALS: BP 123/66
--- NOTE | 2020-10-31 07:25 | EKG ---
[place] [address] [place] [address] ELECTROCARDIOGRAM REPORT Name: KIERA FAIRBANKS Room #: DEP BETTY Flores#: [id number] Admission: 10/30/20 Attend Phys: Discharge: 10/30/20 Date of : 46 Report #: [id number] [facility] ED Test Date: 2020-10-30 Test Time: 19:33:33 Pat Name: KIERA FAIRBANKS Department: Room: Gender: M [employer] Operator: mark : 1950 Requested By: Silver Brunner Order Number: [id number] MD: Andrew Sullivan Measurements Intervals Kimper Rate: 62 P: 67 CA: 200 QRS: 30 QRSD: 96 T: 3 QT: 396 QTc: 402 Interpretive Statements Sinus rhythm Ventricular premature complex Borderline T abnormalities, inferior leads Compared to ECG 11/20/2019 18:42:40 Ventricular premature complex(es) now present Electronically Signed On 10-31-2020 7:25:04 [employer] by Andrew Sullivan [email or web address] <ELECTRONICALLY SIGNED> By: Andrew Sullivan MD, [facility] 10/31/20 0725 32 32 Andrew Sullivan MD, FACC /EPI
== END 2020-10-30 21:10 | disposition left against medical advice (07) ==
LOC: ER 19:22
PROVIDERS: Nurse Practitioner
DX: E87.5 Hyperkalemia (principal); I10 Essential (primary) hypertension; E11.9 Type 2 diabetes mellitus without complications; E78.5 Hyperlipidemia, unspecified; J45.909 Unspecified asthma, uncomplicated; Z79.899 Other long term (current) drug therapy